=== PATIENT | female | born 1955 | race Caucasian/White ===

== ENCOUNTER 2018-09-14 18:22 | Inpatient (IN) ==
[2018-09-14] MEDS ORDERED: DEXTROSE 50% 25 GM/50 ML VIAL IV PRN (20:20)
[2018-09-14] MEDS ORDERED: ALBUTEROL 2.5 MG/3 ML NEB RESP TX PRN (20:20)
[2018-09-14] MEDS ORDERED: ACETAMINOPHEN 325 MG TABLET PO PRN (20:20)
[2018-09-14] MEDS ORDERED: GLUCAGON 1 MG VIAL IM PRN (20:20)
[2018-09-14] MEDS ORDERED: ONDANSETRON 4 MG/2 ML VIAL IV PRN (20:20)
[2018-09-14] MEDS ORDERED: SODIUM CHLORIDE 0.9% 1,000 ML IV SCH (20:30)
[2018-09-14 20:41] LABS: Apearance,Urine CLEAR (Clear); Bilirubin,Urine Negative (Negative); Blood, Urine Small mg/dL (Negative); Glucose,Urine (UA) Negative (Negative); Ketones,Urine Negative (Negative); Nitrite,Urine Negative (Negative); Protein,Urine Negative; RBC,Urine 3 /HPF (0-4); Squamous Epithelial Cell,Urine Occasional /HPF (0-10); Urine Color Yellow (Yellow); Urine Specific Gravity 1.044 (1.001-1.035); Urine Urobilinogen < 2.0 EU/DL (0.2-1.0); WBC,Urine 7 /HPF (0-6)
[2018-09-14] MEDS ORDERED: POTASSIUM CHLORIDE 20 MEQ TABLET PO STA (20:41)
[2018-09-14] MEDS ORDERED: MAGNESIUM SULF RIDER 2 GM in PREMIX 1 EACH IV ONE (20:41)
[2018-09-14] MEDS ORDERED: AZTREONAM 2,000 MG in SYRINGE 1 EACH IV SCH (21:00)
[2018-09-14] MEDS: methylPREDNISolone SOD SUC 40 MG/1 ML VIAL IV SCH (22:32)
[2018-09-14] MEDS: VANCOMYCIN INJ 1,250 MG in SODIUM CHLORIDE 0.9% 250 ML IV SCH (22:33)
[2018-09-14] MEDS: guaiFENesin/DM ER 600-30 MG TABLET PO SCH (22:33)
[2018-09-14] MEDS: AZTREONAM 2,000 MG in SYRINGE 1 EACH IV SCH (22:34)
[2018-09-14] MEDS: BUDESONIDE/FORMOTEROL 160-4.5 INHALER 6 GM INH SCH (22:50)
[2018-09-14] MEDS: INSULIN LISPRO 100 UNIT/ML SUBCUT SCH (22:58)
[2018-09-15] MEDS: ALBUTEROL/IPRATROPIUM 3 ML NEB RESP TX SCH ×3 (01:42→13:22)
[2018-09-15] MEDS: AZTREONAM 2,000 MG in SYRINGE 1 EACH IV SCH ×2 (02:59→09:55)
[2018-09-15] MEDS: methylPREDNISolone SOD SUC 40 MG/1 ML VIAL IV SCH ×3 (02:59→15:25)
[2018-09-15 05:14] LABS: Basophils % 0.4 % (0.0-0.8); Eosinophils # 0.1 10*3/uL (0.0-0.87); Eosinophils % 0.8 % (0.00-10.9); Hematocrit 36.1 VOL% (35.7-47.0); Hemoglobin 11.2 GM/DL (12.0-16.0); Immature Granulocytes % 1.2 %; Immature Granulocytes Absolute 0.09 #; Lymphocytes # 0.6 10*3/uL (1.4-4.0); Lymphocytes % 7.8 % (21.3-54.2); Mean Corpuscular Volume 87.6 FL (87-102); Mean Platelet Volume 10.9 FL (9.6-12.0); Monocytes % 2.1 % (1.7-12.7); Neutrophils % 87.7 % (38.7-73.9); Platelet Count 141 T/CUMM (130-400); Red Blood Count 4.12 MC/CUMM (3.8-5.5); Red Cell Distribution Width 15.2 % (9.3-17.3); White Blood Count 7.6 T/CUMM (4-12)
[2018-09-15 05:50] LABS: Albumin 3.2 G/DL (3.4-5.0); Bilirubin,Total 0.5 MG/DL (0.2-1.0); Calcium 8.9 MG/DL (8.5-10.1); Total Protein 7.4 G/DL (6.4-8.3)
[2018-09-15] MEDS ORDERED: PANTOPRAZOLE 40 MG TABLET PO SCH (09:00)
[2018-09-15] MEDS: BUDESONIDE/FORMOTEROL 160-4.5 INHALER 6 GM INH SCH (09:10)
[2018-09-15] MEDS: guaiFENesin/DM ER 600-30 MG TABLET PO SCH (09:11)
[2018-09-15] MEDS ORDERED: CLORAZEPATE 3.75 MG TABLET PO PRN (09:38)
[2018-09-15] MEDS ORDERED: NON-FORMULARY MEDICATION (Dexlansoprazole [Dexilant] 60 MG) PO SCH (09:45)
[2018-09-15] MEDS ORDERED: SERTRALINE 100 MG TABLET PO SCH (10:00)
[2018-09-15] MEDS ORDERED: ARIPiprazole 15 MG TABLET PO SCH ×2 (10:00→13:00)
[2018-09-15] MEDS ORDERED: METHENAMINE HIPPURATE 1 GM TABLET PO SCH (10:00)
[2018-09-15] MEDS ORDERED: SPIRONOLACTONE 25 MG TABLET PO SCH (10:00)
[2018-09-15] MEDS ORDERED: FUROSEMIDE 40 MG TABLET PO SCH (10:00)
[2018-09-15] MEDS ORDERED: LEVOTHYROXINE 75 MCG TABLET PO SCH (10:00)
[2018-09-15] MEDS ORDERED: GABAPENTIN 600 MG TABLET PO SCH (10:00)
[2018-09-15] MEDS ORDERED: MONTELUKAST 10 MG TABLET PO SCH (10:00)
[2018-09-15] MEDS ORDERED: FLUTICASONE 50 MCG NASAL SPRAY 16 GM BOTTLE BOTH NARES SCH (10:00)
[2018-09-15] MEDS ORDERED: OXYBUTYNIN XL 15 MG TABLET PO SCH (10:00)
[2018-09-15] MEDS ORDERED: BISOPROLOL 5 MG TABLET PO SCH (10:00)
[2018-09-15] MEDS ORDERED: traZODone 50 MG TABLET PO PRN (10:30)
[2018-09-15] MEDS ORDERED: ONDANSETRON 4 MG TABLET PO PRN (10:30)
[2018-09-15] MEDS ORDERED: oxyCODONE/ACETAMINOPHEN 5-325 MG TABLET PO PRN (10:30)
[2018-09-15] MEDS: VANCOMYCIN INJ 1,250 MG in SODIUM CHLORIDE 0.9% 250 ML IV SCH (11:06)
[2018-09-15] MEDS: INSULIN LISPRO 100 UNIT/ML SUBCUT SCH ×3 (11:08→16:38)
[2018-09-15] MEDS ORDERED: GABAPENTIN 300 MG CAPSULE PO SCH (12:00)
[2018-09-15] MEDS ORDERED: methylPREDNISolone ACETATE 40 MG/1 ML VIAL IM ONE (14:28)
[2018-09-15] MEDS ORDERED: AZTREONAM 2,000 MG in SODIUM CHLORIDE 0.9% 100 ML IV SCH (15:00)
[2018-09-15 16:31] VITALS: BP 123/65
[2018-09-15] MEDS ORDERED: NON-FORMULARY MEDICATION (Omeprazole 40 MG) PO SCH (21:00)
[2018-09-16] MEDS ORDERED: GABAPENTIN 300 MG CAPSULE PO SCH (09:00)
== END 2018-09-15 18:20 | disposition home or self-care (01) | DRG 178 ==
LOC: EDUNIT# → EDBD → N.ED 18:22 → N.EDINP 20:20 → N.2E 20:40
PROVIDERS: ADMIT Internal Medicine; ATTEND Internal Medicine